=== PATIENT | male | born 1980 | race Caucasian/White ===

== ENCOUNTER 2016-08-24 22:59 | Emergency (ER) | payer SELFPAY ==
[~2016-08-24 22:59] MED LIST: ABILIFY PO; AMOXICILLIN500 M1 PO; ATARAX PO; BACITRACIN30 GM TOP; BACLOFEN10 MG PO; DARVOCET-N 1001 TAB PO; DEPAKOTE PO; DICLOFENAC PO; DOXEPIN PO; ELIMITE60 GM; FAMOTIDINE PO; FLEXERIL PO; FLEXERIL10 MG PO; KETOPROFEN PO; LISINOPRIL PO; LISINOPRIL10 MG PO; LORTAB 5/500 TA1 TA1 PO; MEDROL PO; NAPROSYN500 MG PO; NAPROXEN PO; NEURONTIN100 MG PO; NO MEDICATIONS; NORCO1 TAB 10/3 PO; NORFLEX100 MG PO; PAXIL PO; PREDNISONE PO; PREDNISONE10 MG/DOSE PO; ROBAXIN PO; TYLOX 5/500 CAP1 CAP PO; ULTRAM PO; VICODIN 5/500 T1 TAB PO; VOLTAREN75 MG PO
== END 2016-08-25 01:44 | disposition home or self-care (01) ==
LOC: SED 22:59
DX: M54.41 Lumbago with sciatica, right side (principal); F17.210 Nicotine dependence, cigarettes, uncomplicated; Z98.890 Other specified postprocedural states
CPT/HCPCS: 96372; 99283; J1885

== ENCOUNTER 2016-09-09 06:14 | Observation (INO) | payer SELFPAY ==
--- NOTE | ~2016-09-09 | CR72 ---
[facility] A Service of [facility] RADIOLOGY TEXT RESULTS PATIENT: KEVIN COLLINS LOCATION: [facility] : [birth year] UNIT #: [id number] AGE: [address]: French King MD SEX: M ORDER DR: [id number] [address] [address] [id number] E MR#: [id number] Acc #: [id number] NAME: KEVIN COLLINS : 1980 SEX: M STUDY DATE/TIME: 09/09/2016 6:51 UNIT: ADRYAN ROOM: STUDY DESCRIPTION: CR Chest Single View Portable Attending Physician: Joshua Ibarra M.D. Ordering Physician: Joshua Ibarra M.D. Primary Care Physician: Primary Care Physician No MEDICAL IMAGING REPORT This report is preliminary unless electronic signature is present EXAM Portable chest 1 view 09/09/2016 COMPARISON 10/31/2015. CLINICAL HISTORY Short of air and chest pain since this morning. FINDINGS There has been previous right clavicle repair but the exam is otherwise normal. There is no infiltrate, effusion, pneumothorax or suspicious nodule and heart size and pulmonary vascularity are normal. IMPRESSION Prior right clavicle surgery, otherwise negative chest. Dictated by... Wayne Giles M.D. THIS IS AN ELECTRONICALLY VERIFIED REPORT Wayne Giles M.D. at 09/09/2016 1:47 PM TEV/mjs TD: 09/09/2016 07:46 JOB #: [id number] [facility] A Service of [facility] RADIOLOGY TEXT RESULTS PATIENT: KEVIN COLLINS LOCATION: CED[facility] : [birth year] UNIT #: [id number] AGE: [address]: French King MD SEX: M ORDER DR: MEDICAL IMAGING REPORT Page 1 of 1 COPY
--- NOTE | ~2016-09-09 | EKG ---
PATIENT: KEVIN COLLINS UNIT #: [id number] Ventricular Rate: 91 BPM Atrial Rate: 91 BPM P-R Interval: 146 ms QRS Duration: 94 ms Q-T Interval: 364 ms QTC Calculation(Bezet): 447 ms P Wiggins: 69 degrees Calculated R Wiggins: 78 degrees Calculated T Wiggins: 64 degrees Diagnosis Line: Normal sinus rhythm Diagnosis Line: Left atrial enlargement Diagnosis Line: Borderline ECG Diagnosis Line: When compared with ECG of 31-OCT-2015 02:29, Diagnosis Line: No significant change was found Diagnosis Line: Confirmed by NEELA FREEMAN MD ([id number]) on 09/09/2016 Diagnosis Line: 6:07:41 PM INTERPRETING MD: LYDIA SOTO
--- NOTE | ~2016-09-09 | CR58 ---
[facility] A Service of [facility] & [facility] RADIOLOGY TEXT RESULTS PATIENT: KEVIN COLLINS [facility] UN[facility] #: [id number] AGE: [address]: French King MD SEX: M ORDER DR: [id number] [facility] [address] [facility]. [address] [id number] E MR#: [id number] Acc #: [id number] NAME: KEVIN COLLINS : 1980 SEX: M STUDY DATE/TIME: 09/09/2016 09:15 UNIT: [facility] ROOM: STUDY DESCRIPTION: CR Cervical Spine 2 or 3 Views Attending Physician: Joshua Ibarra M.D. Ordering Physician: Joshua Ibarra M.D. Primary Care Physician: Primary Care Physician No MEDICAL IMAGING REPORT This report is preliminary unless electronic signature is present EXAM Cervical spine series, 09/09/2016 09:15 hours HISTORY 35-year-old man who passed out today, falling and hitting head. Neck pain since fall. COMPARISON Cervical spine series, 09/19/2008 FINDINGS AP, lateral, open-mouth and lateral swimmer's view were performed. C1-T2 are visualized. There is no prevertebral soft tissue swelling. Vertebral body and disc heights are normal. Facet joints are normal. The dens is intact. IMPRESSION Negative cervical spine series. Dictated by... Jazmyn Vanegas M.D. THIS IS AN ELECTRONICALLY VERIFIED REPORT Jazmyn Vanegas M.D. at 09/09/2016 2:35 PM Rosa TD: 09/09/2016 09:51 JOB #: [id number] MEDICAL IMAGING REPORT Page 1 of 1 COPY
--- NOTE | ~2016-09-09 | CT71 ---
[facility] A Service of [facility] RADIOLOGY TEXT RESULTS PATIENT: KEVIN COLLINS LOCATION: [facility] : [birth year] UNIT #: [id number] AGE: [address]: French King MD SEX: M ORDER DR: [id number] [facility] [address] [facility]. [place], [place] [address] [id number] MR#: [id number] Acc #: [id number] NAME: KEVIN COLLINS : 1980 SEX: M STUDY DATE/TIME: 09/09/2016 7:37 UNIT: CED[facility] ROOM: [id number] STUDY DESCRIPTION: CT Head Wo Contrast Attending Physician: French King M.D. Ordering Physician: Joshua [facility] Stacey Ibarra Primary Care Physician: Primary Care Physician No MEDICAL IMAGING REPORT This report is preliminary unless electronic signature is present EXAM CT of the head without contrast HISTORY Syncope today. The patient apparently also fell and he is also experiencing dizziness. TECHNIQUE Axial CT images were obtained from the vertex of the skull through the skull base. No intravenous contrast was administered. This CT exam was performed with one or more of the following radiation dose reduction techniques: automatic exposure control, adjustment of mA and/or kV according to patient size, and iterative reconstruction. FINDINGS Axial noncontrast images were obtained from the skull base to the vertex. Ventricular size and configuration are normal. There is no evidence of acute infarct or hemorrhage. There are no extra-axial fluid collections. No mass lesion or mass effect is seen. There are no skull fractures. IMPRESSION Negative. Dictated by... Josefa Vargas M.D. THIS IS AN ELECTRONICALLY VERIFIED REPORT Josefa Vargas M.D. at 09/09/2016 1:15 PM RAFAEL/anaya [facility] A Service of [facility] & [facility] RADIOLOGY TEXT RESULTS PATIENT: KEVIN COLLINS LOCATION: [facility] : [birth year] UNIT #: [id number] AGE: [address]: French King MD SEX: M ORDER DR: TD: 09/09/2016 08:14 JOB #: [id number] MEDICAL IMAGING REPORT Page 1 of 1 COPY
[2016-09-09 07:05] LABS: BASOPHIL% 0.5 % (0-2.5); EOSINOPHIL# 0.2 X10e3 (0-0.7); EOSINOPHIL% 2.5 % (0.0-7.0); HEMATOCRIT 52.4 % (38.0-50.0); HEMOGLOBIN 17.6 gm/dL (13.0-16.0); LYMPHOCYTE# 1.4 X10e3 (1.0-3.5); LYMPHOCYTE% 18.3 % (17.0-45.0); MEAN CELL VOLUME 92.3 FL (83-96); MEAN CORPUSCULAR HEMOGLOBIN 31.1 PG (28-34); MEAN CORPUSCULAR HGB CONC 33.6 g/dL (30-36); MEAN PLATELET VOLUME 10.6 FL (6.5-11.5); MONOCYTE# 0.7 X10e3 (0-1.0); NEUTROPHIL# 5.5 X10e3 (1.5-7.1); NEUTROPHIL% 69.7 % (40-75); PLATELET COUNT 154 X10e3 (140-420); RED BLOOD COUNT 5.68 X10e (3.90-5.60); RED CELL DISTRIBUTION WIDTH 14.8 % (11.0-15.5); WHITE BLOOD COUNT 7.9 X10e3 (4.0-10.5)
[2016-09-09 07:08] LABS: POC - CKMB <1.0 ng/mL (0.0-7.9); POC - TROPONIN <0.05 ng/mL (<=0.05)
[2016-09-09 07:10] LABS: DIFF IND NO
[2016-09-09 07:48] LABS: ALBUMIN SERUM 4.2 g/dL (3.5-5.0); BILIRUBIN, DIRECT 0.1 mg/dL (0.0-0.2); BILIRUBIN,INDIRECT 0.5 mg/dL (0.0-0.9); BILIRUBIN,TOTAL 0.6 mg/dL (0.2-2.0); BUN/CREATININE RATIO 18.88; CALCIUM SERUM 8.9 mg/dL (8.4-10.2); CREATININE SERUM 0.9 mg/dL (0.6-1.4); POTASSIUM 3.9 mmol/L (3.5-5.1)
[2016-09-09 09:06] LABS: PARTIAL THROMBOPLASTIN TIME 29.4 SECONDS (23.5-31.3); PROTHROMBIN TIME (PATIENT) 10.4 SECONDS (9.6-11.5)
[2016-09-09 10:21] LABS: POC - CKMB <1.0 ng/mL (0.0-7.9); POC - TROPONIN <0.05 ng/mL (<=0.05)
== END 2016-09-09 11:04 | disposition left against medical advice (07) | DRG 313 ==
LOC: CED 06:14 → CEDOF 09:58
PROVIDERS: Emergency Medicine
DX: R07.9 Chest pain, unspecified (principal); Z98.890 Other specified postprocedural states
CPT/HCPCS: 70450; 71010; 72040; 80048; 80076; 82553; 83880; 84484; 85025; 85379; 85610; 85730; 93005; G0378